=== PATIENT | male | born 1960 | race Caucasian/White ===

== ENCOUNTER 2017-07-18 11:52 | Emergency (ER) | payer OTHER ==
[~2017-07-18] VITALS: Ht 182.9 cm; Wt 86.8 kg
[2017-07-18 12:48] LABS: HEMATOCRIT 44.8 % (38.0-50.0); HEMOGLOBIN 14.8 G/DL (12.5-16.6); MCH 29.2 PG (29.0-34.0); MCV 88.5 FL (86-99); PLATELET COUNT 201 K/uL (156-360); RBC DIS.WIDTH-CV 13.2 % (11.8-14.6); RED BLOOD COUNT 5.06 M/uL (4.00-5.50); WHITE BLOOD COUNT 10.2 K/uL (4.1-10.2)
[2017-07-18 12:56] LABS: ALBUMIN 3.9 g/dL (3.2-4.8)
[2017-07-18 12:57] LABS: CHLORIDE 104 mEq/L (99-109); POTASSIUM 4.1 mEq/L (3.7-5.4); SODIUM 138 mEq/L (136-147)
[2017-07-18 12:59] LABS: GLUCOSE 113 mg/dL (70-99); TOTAL PROTEIN 7.6 g/dL (6.4-8.3)
[2017-07-18 13:01] LABS: TOTAL BILIRUBIN 0.8 mg/dL (0.0-1.0)
[2017-07-18 13:02] LABS: ALKALINE PHOSPHATASE 74 IU/L (3-129)
[2017-07-18 13:04] LABS: AST (GOT) 19 IU/L (2-34); UREA NITROGEN (BUN) 12 mg/dL (9-23)
[2017-07-18 13:05] LABS: ALT (GPT) 31 IU/L (3-49)
[2017-07-18 13:10] LABS: GFR ESTIMATE (CALCULATED) > 59 mL/min/ (58.99-99999)
[2017-07-18 14:41] LABS: APPEARANCE CLEAR ((CLEAR)); BILIRUBIN NEGATIVE; BLOOD SMALL; COLOR YELLOW ((YELLOW)); GLUCOSE (STRIP) NEGATIVE; KETONES 5; LEUKOCYTES NEGATIVE; NITRITE NEGATIVE; PROTEIN (STRIP) 30; SPECIFIC GRAVITY 1.019 (1.000-1.030)
[2017-07-18 14:46] LABS: BACTERIA RARE /HPF; EPITHELIAL CELLS NONE SEEN /HPF; MUCUS TRACE /LPF; UCUL ADDED? YES
[2017-07-18] MEDS ORDERED: BIOTIN1000 MICRO PO (17:14)
[2017-07-18 19:56] VITALS: BP 145/65
[2017-07-18 23:01] VITALS: BP 126/59
[2017-07-19 03:30] VITALS: BP 131/58
[2017-07-19 07:11] VITALS: BP 134/70
[2017-07-19] MEDS ORDERED: AUGMENTIN875 MG PO (10:51)
== END 2017-07-19 11:22 | disposition home or self-care (01) ==
LOC: EME 11:52 → ENRESERV 17:18 → 2SOUTH 17:31 → 2EAST 17:31 → 2SOUTH 17:31 → ENRESERV 17:53 → 2EAST 19:55
PROC: 0DTJ4ZZ Resection of Appendix, Percutaneous Endoscopic Approach (ICD-10-PCS; principal; 2017-07-18)
DX: K35.80 Unspecified acute appendicitis (principal); Z90.49 Acquired absence of other specified parts of digestive tract
CPT/HCPCS: 74177; 80053; 81003; 85027; 87086; 88304; 93005; 99281; 99285; G0378; J0131; J0330; J1100; J1170; J1885; J2250; J2405; J2710; J3010; J7030; J7120; S0074